=== PATIENT | female | born 1990 | race Caucasian/White ===

== ENCOUNTER 2017-08-19 20:46 | Emergency (ER) | payer OTHER ==
[2017-08-19 21:11] VITALS: BP 116/77
--- NOTE | 2017-08-19 21:23 | EDM.PDOC ---
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 States it kind of feels like labor pains or at least very strong [place] pains. Pains are bad enough that it made her slightly nauseated. She's had no premature labor. She was admitted to the hospital at 35 weeks gestation last time and was felt to be possibly labor and received a shot to stop labor. The baby was born at 37 weeks gestation. She denies any genitourinary tract infections or symptoms of dysuria urgency . No fever or chills. Bowels work twice today and she's not had problems with constipation. Onset: Today Onset Date: 08/19/17 Onset Time: 16:30 Duration: Hour(s): (Seem to start after she was putting away [employer] decorations today.) Location: Reports: Abdomen (history of present illness.) Quality: Reports: Ache, Other (Cramping on intermittent fashions suggestive of) Severity: Moderate (labor pains.) Improves with: Reports: None Worsens with: Reports: None Context: Reports: Other (18 weeks gestation.). Denies: Activity, Exercise, Lifting, Sick Contact, Trauma Associated Symptoms: Denies: Confusion, Chest Pain, Cough, cough w sputum, Diaphoresis, Fever/Chills, Headaches, Loss of Appetite, Malaise, Nausea/Vomiting , Rash, Seizure, Shortness of Breath, Syncope Treatments RELAY MAN: Reports: Other (see below) Other Treatments RELAY MAN: excedrin Abdominal Pain Score (Numeric/FACES): 4 - Related Data Allergies Allergy/AdvReac Type Severity Reaction Status Date / Time No Known Allergies Allergy Verified 08/19/17 21:03 Home Meds: Home Meds Pnv with Ca,No.71/Iron/Fa [ Vitamin Tablet] 1 each PO DAILY 02/24/14 [ History] Cyclobenzaprine [Flexeril] 10 mg PO DAILY PRN 08/19/17 [History] 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 Denies: Fever, Chills, Weight Loss HEENT: Reports: No Symptoms Respiratory: Reports: No Symptoms Cardiovascular: Reports: No Symptoms Endocrine: Reports: No Symptoms GI/Abdominal: Reports: Abdominal Pain (Strong intermittent abdominal cramping pain in the distribution of the uterus. Of note she is 18 weeks gestation. Pain radiates through to her back particularly lower back across the posterior iliac crest.) : Reports: Frequency. Denies: Dysuria, Flank Pain Musculoskeletal: Reports: No Symptoms, Back Pain Skin: Reports: No Symptoms (Starting in the abdomen however.) Neurological: Reports: No Symptoms Psychiatric: Reports: No Symptoms Hematologic/Lymphatic: Reports: No Symptoms Immunologic: Reports: No Symptoms ED EXAM - Physical Exam Exam: See Below Exam Limited By: No Limitations General Appearance: Alert, WD/WN, Anxious Respiratory/Chest: No Respiratory Distress, Lungs Clear, Normal Breath Sounds, No Accessory Muscle Use Cardiovascular: Normal Peripheral Pulses, Regular Rate, Rhythm, No Edema, No Gallop, No Murmur GI/Abdominal Exam: Soft, Non-Tender (Mildly hyperactive bowel sounds.), No Organomegaly, Abnormal Bowel Sounds, Other (Uterus is 18 weeks gestation and nontender.). No: Guarding, Rigid, Rebound, Tender Back Exam: Normal Inspection, Full Range of Motion. No: CVA Tenderness (L), CVA Tenderness (R) Extremities: Normal Inspection, Normal Range of Motion, Non-Tender, No Pedal Edema Neurological: Alert, Oriented, CN II-XII Intact, Normal Cognition, Normal Gait Psychiatric: Normal Affect, Normal Mood Skin Exam: Warm, Dry, Intact, Normal Color, No Rash Course - Vital Signs Last Recorded V/S: Last Vital Signs Temp 37.1 C 08/19/17 21:05 Pulse 88 08/19/17 21:05 Resp 18 08/19/17 21:05 BP 116/77 08/19/17 21:05 Pulse Ox 97 08/19/17 21:05 - Orders/Labs/Meds Labs: Laboratory Tests 08/19/17 Range/Units 21:25 Urine Color Yellow (Yellow) Urine Appearance Clear (Clear) Urine pH 6.5 (5.0-8.0) Ur Specific [place] 1.015 (1.005-1.030) Urine Protein Trace H (Negative) Urine Glucose (UA) Negative (Negative) Urine Ketones Trace H (Negative) Urine Occult Blood Negative (Negative) Urine Nitrite Negative (Negative) Urine Bilirubin Negative (Negative) Urine Urobilinogen 0.2 (0.2-1.0) Ur Leukocyte Esterase Negative (Negative) Urine RBC 0-5 (0-5) /hpf Urine WBC 0-5 (0-5) /hpf Ur Epithelial Cells 0-5 (0-5) /hpf Urine Bacteria Rare (FEW) /hpf Urine Mucus Not seen (FEW) /hpf - Radiology Interpretation Free Text/Narrative:: 26-year-old female who is 5 para 4 presents to the ED with diffuse lower abdominal intermittent cramping pain in the distribution of the uterus suggestive of uterine contractions. States they are quite intense at times in fact it did make her nauseated for a period of time. Started about 1630 hrs. today after she been busy putting away [employer] decorations. She denies any genitourinary symptoms. Toes has urinary frequency due to . Bowels have worked twice today. Emanation reveals no abdomen maladies with uterus just below the umbilicus compatible with an 18 week gestation. It is nontender. Plan urinalysis and I will do a bedside ultrasound. Plan we'll then probably to send her to OB to see if we can identify uterine contractions on a regular basis. - Re-Assessments/Exams Free Text/Narrative Re-Assessment/Exam: 08/19/17 21:57 patient is still experiencing intermittent abdominal cramping pain. Bedside ultrasound reveals an active fetus with good heart tones in the 150s.. Placenta is on the posterior wall of the fundus with no evidence of subchorionic hemorrhage. Cervix appears closed. 08/19/17 22:15 urinalysis came back completely normal. I contacted Dr. Garcia her FACTORY ASSEMBLER and he is special education tutor tonight. He will phone the plunkett. The plan will be to place her on topical assist monitor for about a half hour to see if she is actually thuy. She will be essentially discharged from the ED. Departure - Departure Time of Disposition: 22:17 Disposition: Home, Self-Care 01 Condition: Fair Clinical Impression: Abdominal pain affecting , Uterine contractions during - Discharge Information Referrals: Rancho Garcia MD [Primary Care Provider] - Forms: ED Department Discharge Additional Instructions: Evaluation the emergency room tonight in regards to 18 week gestation with development of diffuse lower abdominal cramping pain that radiates through to her lower back and comes and goes characteristic of cramping. This strongly suggests you drink contractions. Ultrasound reveals a normal matias fetus with good heart tones in the 150s. There is no evidence of any subchorionic hemorrhage area placentas on the posterior wall of the uterus where it is usually located . Urinalysis done in the ED is negative. Spoke with Dr. Garcia her FACTORY ASSEMBLER and we both agree that you should go to the OB unit for another half an hour for monitoring purposes. The monitor will Whether or not there is significant uterine contractions versus strong [place] Rodriguez although it's very early in of her [place] contractions.
== END 2017-08-19 22:35 | disposition home or self-care (01) ==
LOC: JD.ED 20:46
DX: O60.02 Preterm labor without delivery, second trimester (principal); Z3A.18 18 weeks gestation of pregnancy; Z79.899 Other long term (current) drug therapy; O26.891 Other specified pregnancy related conditions, first trimester; N94.89 Other specified conditions associated with female genital organs and menstrual cycle
CPT/HCPCS: 81001; 99285; J7120; 99284; A9270-GY

== ENCOUNTER 2018-01-06 14:13 | Inpatient (IN) | payer OTHER ==
[2018-01-06] MEDS ORDERED: Nalbuphine 20 MG/ML 1 ML Syringe IVPUSH PRN (15:52)
[2018-01-06] MEDS ORDERED: Lidocaine 1% 50 ML MDV INJECT ONE (15:52)
[2018-01-06] MEDS ORDERED: Sodium Chloride 0.9% 10 ML Syringe FLUSH PRN (15:52)
[2018-01-06] MEDS ORDERED: Oxytocin/Lactated Ringers 10 UNIT/1,000 ML BAG IV SCH (16:00)
--- NOTE | 2018-01-06 16:18 | PCM.LDHP ---
L&D History of Present Illness - General Date of Service: 01/06/18 Admit Problem/Dx: Patient Status Order with Admit Dx/Problem 01/06/18 15:52 Patient Status [ADT] Routine Admission Diagnosis/Problem Admission Diagnosis/Problem complications 01/06/18 16:01 38-1/7 week intrauterine , pruritus of , elevated liver function studies, cannot rule out intrahepatic cholestasis of Source of Information: Patient History Limitations: Reports: No Limitations - History of Present Illness Introduction:: Guadalupe is a 27-year-old 5 para 2113 white female was admitted for a medical induction of labor for symptoms of pruritis in and elevated liver function studies. KATHLEEN 01/19/2018 [address] her at 38-1/7 weeks gestational age. Due date is determined by certain last menstrual period of 04/14/2017 onset, ordered by ultrasound 3 on 06/28/2017 05/27/2017 end 08/16/2017. Patient reports severe itching with acute onset approximately 2 days ago. She was seen in clinic yesterday at which time a CBC, CMP and bile acids were performed. Urinalysis was also found to be negative with the exception of some blood. Bile acid assays are pending at this time. Her AST was elevated to 38. On repeat on increased to 42. Her itching worsened today to the point where she is not able to sleep last night and she is concerned about her baby's well-being. Biophysical profile this a.m. was 8/8. 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 KATHLEEN 01/19/2018. LMP 04/14/2017 times approximate 5 days. Past pregnancies: 1. 2009spontaneous at 6 weeks 2. [birth year] 2010 [facility] 40 weeks-5 [facility]. [facility] born 02/25/2015 at 39 weeks gestational age4 [address] [facility] [facility] [place] [facility]. Male born 03[birth year]17/2017 at 37-2/7 weeks gestational age12 hours of labor6 lbs. 7 oz.NSVDbaby spent 10 [place] in the [place]. Child's name is Sanjeev Henson Patient had a relatively normal course until 2 days ago. Her E PDS score 09/02/2017 was 3/30. Group B strep screen is negative. Patient has a history of depression with previous . She had a normal one- hour glucose tolerance test patient declined genetic evaluation. She plans to breast-feed. course: Patient was initially seen for her care on 06/28/2017 at 10-5/7 weeks gestational age. She seen on a regular basis throughout the . She gained weight of approximately 12 pounds from 152-164 pounds. Her vital signs stable throughout the course. Fundal height growth has been appropriate. Cervix on last evaluation in clinic was 3 cm, 80% effaced, -3 station, mid position, very soft. T dap was given on 12/09/2017. laboratory testing shows blood to be B+. Antibody screen is negative. First hemoglobin is 13.0 g/dL. Platelets were 369,000. She is rubella immune. RPR is nonreactive. Urine culture was negative. Hepatitis B surface antigen and HIV assays were negative. GC and Chlamydia were both negative. Second trimester labs showed a 1 hour glucose tolerance test result of 100. Her hemoglobin is 12.2 g/dL. Platelets are 261,000. Group B strep screen was negative. Labor count on 01/05/2018 was 259,000. Allergies: None. Medications: 1. Hydroxyzine 25 mg oral tablet 3-4 times a day for itching 2. Acetaminophen [place] codeine No. 3 6[address]91 oral tablets when necessary for pain 3. Pro-air HFR 108 g/per action inhalation aerosol solution1-2 puffs every 4- 6 hours when necessary as directed 4. Detailed totalacetaminophencaffeine capsules when necessary for headache 5. As a [id number] mg daily 6. vitamins daily. Past medical history: 1. Vaginal delivery 4 2. Miscarriage 3 asthma 4. Seasonal allergies 5. depression after second was on Wellbutrin Past surgical history: 1. Oral surgery in 2007 and 2009 Family history: Mother and father are alive and well. One brother and one sister alive and well. Maternal grandmother alive and well. Maternal grandfather secondary to heart disease. Paternal grandfather mother alive and well. Paternal grandfather secondary to old age. No clotting , bleeding, anesthesia and round is noted in the family. A daughter had a history of elevated platelets but this has now resolved. No -related problems noted in the family. Patient has one sister with uterine fibroids. Social history: Patient is , is Natividad. They live in [place], [place]. 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 She is a high school graduate. She denies any significant most alcohol, drugs or tobacco. Review of systems: Severe, intolerable itching evolving her entire body including the palms of her hands and soles of her feet. Baby is active. No contractions noted. Skin: Itching as above. Denies any rash. HEENT: Itching Cardiovascular: No chest pain or exercise intolerance Respiratory: No shortness of breath or infectious symptoms Breasts: Changes associated , patient plans to breast-feed GI: Negative : Baby is active. Height increased secondary to Musculoskeletal: Negative Neurological: Pruritus but otherwise negative. Physical exam: In general patient is well-developed, well-nourished, miserable female who is having significant periodic symptomatology. Blood pressure on 01/05/2018 124/68. Weight was 164 pounds. heart rate was 154. Pregravid weight was 152. Height is 5 feet 3. Body mass index is 28.7. Skin is warm and dry without any apparent lesions. Specifically negative for rashes, hives or other cutaneous eruptions. HEENT, neck and back within normal limits Lungs are clear with good breath sounds in all lung coto. Cardiovascular exam shows regular rate and rhythm without murmurs. Breasts exam deferred having been done at first visit sounds normal. The most protuberant lenses fundal height of 40.5 cm. Cervix is as described above. It is 3 cm, 80% effaced, very soft, -3 station, mid position. Baby is in a vertex presentation. Extremities and neurological exam other than itching and normal limits. 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 Comprehensive metabolic profile has returned showing mildly decreased albumin and the uterine but with mildly elevated AST of 38. Repeat CMP on 01/06/2018 showed slight increase in AST to 42. Urinalysis is unremarkable with the exception of some blood which was felt to be due to her cervical exam. Problem List Initiated/Reviewed/Updated: Yes Orders Last 24hrs: Active Orders 24 hr Category Date Time Status Patient Status [ADT] Routine ADT 01/06/18 15:52 Ordered Activity as Tolerated [RC] PFP Care 01/06/18 15:52 Ordered Communication Order [RC] ASDIRECTED Care 01/06/18 15:52 Ordered Heart Tones [RC] ASDIRECTED Care 01/06/18 15:54 Ordered Notify Provider [RC] PFP Care 01/06/18 15:52 Ordered Notify Provider [RC] PRN Care 01/06/18 15:52 Ordered Peripheral IV Care [RC] . DIRECTED Care 01/06/18 15:54 Ordered Pump Management, Intrathecal [RC] ASDIRECTED Care 01/06/18 15:55 Ordered Vital Signs [RC] PER UNIT ROUTINE Care 01/06/18 15:52 Ordered Regular Diet [DIET] Diet 01/06/18 Lunch Ordered Lactated Ringers [Ringers, Lactated] 1,000 ml Med 01/06/18 16:00 Ordered IV ASDIRECTED Lidocaine 1% [Xylocaine 1%] Med 01/06/18 15:52 Once 10 ml INJECT ONETIME ONE Nalbuphine [Nubain] Med 01/06/18 15:52 Ordered 10 mg IVPUSH Q2H PRN Oxytocin/Lactated Ringers [Pitocin in LR 10 Units/1,000 Med 01/06/18 16:00 Ordered ML] 10 unit in 1,000 ml IV TITRATE Sodium Chloride 0.9% [Saline Flush] Med 01/06/18 15:52 Ordered 10 ml FLUSH ASDIRECTED PRN Electronic Heart Tones Ext w TOCO [WOMSER] Ot 01/06/18 15:52 Ordered Routine Electronic Heart Tones Internal [WOMSER] Per Unit Ot 01/06/18 15:52 Ordered Routine Peripheral IV Insertion Adult [OM.PC] Routine [facility] 01/06/18 15:52 Ordered Resuscitation Status Routine Resus Stat 01/06/18 15:52 Ordered Assessment/Plan Comment:: 1. 38-1/7 week intrauterine with pruritus of , elevated liver function studies. Cannot rule out intra-hepatic cholestasis of . Potential risks of intra-hepatic cholestasis of , benefits of induction of labor and risks of induction of labor or all discussed in detail patient. She wishes to proceed. 2. Multiparous status with advanced cervical dilation 3.Group B strep negative 4. Rubella immune 5. Patient plans to breast-feed 6. Patient okay with epidural in labor and delivery 7. History of depression on meds after second Plan: 1. Pitocin/artificial rupture membranes induction of labor. Procedure, risks, benefits, alternatives of care discussed with patient. She appears to understand and wishes to proceed 2. Near continuous electronic monitoring 3. Support breast-feeding decision 4. Epidural when necessary per patient desire 5. Repeat liver function studies with CMP on day following delivery. 6. Platelet count on 01/05/2018 was 259,000, hemoglobin is 12.4 g/dL.
[2018-01-06] MEDS ORDERED: Bupivacaine 0.25% 10 ML SDV ONE (17:00)
[2018-01-06] MEDS: Lactated Ringers 1,000 ML IV SCH ×4 (18:47→20:50)
[2018-01-06] MEDS ORDERED: diphenhydrAMINE 50 MG/ML SDV IVPUSH PRN (19:02)
[2018-01-06] MEDS ORDERED: ePHEDrine 50 MG/ML SDV IVPUSH PRN (19:02)
[2018-01-06] MEDS ORDERED: fentaNYL 100 MCG/2 ML SDV EPIDUR PRN (19:02)
[2018-01-06] MEDS ORDERED: Bupivacaine/fentaNYL/NS 100 ML Bag EPIDUR SCH (19:15)
--- NOTE | 2018-01-06 19:41 | PCM.PREANE ---
Preanesthetic Assessment - Anesthesia/Transfusion/Family Hx Anesthesia History: Prior Anesthesia Without Reaction Family History of Anesthesia Reaction: No Transfusion History: No Prior Transfusion(s) - Review of Systems General: No Symptoms Pulmonary: No Symptoms Cardiovascular: No Symptoms Gastrointestinal: No Symptoms Neurological: No Symptoms Other: Reports: None - Physical Assessment Pulse: 83 O2 Sat by Pulse Oximetry: 97 Respiratory Rate: 14 Blood Pressure: 126/86 Temperature: 36.3 C Vital Signs: Last Vital Signs Temp 36.6 C 01/06/18 15:55 Pulse 83 01/06/18 18:02 Resp 14 01/06/18 15:55 BP 126/86 01/06/18 16:45 Pulse Ox 97 01/06/18 15:55 Height: 1.6 m Weight: 73.936 kg ASA Class: 2 Mental Status: Alert & Oriented x3 Airway Class: Mallampati = 1 Dentition: Reports: Normal Dentition Thyro-Mental Finger Breadths: 3 Mouth Opening Finger Breadths: 3 ROM/Head Extension: Full Lungs: Clear to Auscultation, Normal Respiratory Effort Cardiovascular: Regular Rate, Regular Rhythm - Allergies Allergies/Adverse Reactions: Allergies Allergy/AdvReac Type Severity Reaction Status Date / Time No Known Allergies Allergy Verified 12/30/17 09:36 - Anesthesia Plan Pre-Op Medication Ordered: None - Acknowledgements Anesthesia Type Planned: Epidural Pt an Appropriate Candidate for the Planned Anesthesia: Yes Alternatives and Risks of Anesthesia Discussed w Pt/Guardian: Yes Pt/Guardian Understands and Agrees with Anesthesia Plan: Yes PreAnesthesia Questionnaire Gastrointestinal History: Reports: GERD 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: Psychiatric History: Reports: Other (See Below) Other Psychiatric History: 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 child Dermatologic History: Reports: Urticaria Other Dermatologic History: with this starting yesterday - Past Surgical History HEENT Surgical History: Reports: Other (See Below) Dermatological Surgical History: Reports: None - SUBSTANCE USE Smoking Status *Q: Never Smoker Second Hand Smoke Exposure: No Recreational Drug Use History: No - HOME MEDS Home Medications: Home Meds Pnv with Ca,No.71/Iron/Fa [ Vitamin Tablet] 1 each PO DAILY 02/24/14 [ History] Cyclobenzaprine [Flexeril] 10 mg PO DAILY PRN 08/19/17 [History] - CURRENT (IN HOUSE) MEDS Current Meds: Current Medications Diphenhydramine HCl (Benadryl) 25 mg IVPUSH Q6H PRN PRN Reason: Itching Ephedrine Sulfate (Ephedrine Sulfate) 5 mg IVPUSH ASDIRECTED PRN PRN Reason: HYPOTENTSION Fentanyl (Sublimaze) 100 mcg EPIDUR Q3H PRN PRN Reason: PAIN Last Admin: 01/06/18 19:31 Dose: 100 mcg Fentanyl/Bupivacaine HCl (Fentanyl/Bupivacaine/Ns 2 Mcg-0.125% 100 Ml) 100 ml EPIDUR ASDIRECTED CELESTINE Last Admin: 01/06/18 19:31 Dose: 100 ml Lactated Ringer's (Ringers, Lactated) 1,000 mls @ 100 mls/hr IV ASDIRECTED CELESTINE Last Admin: 01/06/18 18:48 Dose: 900 mls/hr Oxytocin/Lactated Ringer's (Pitocin In Lr 10 Units/1,000 Ml) 10 unit in 1,000 mls @ 12 mls/hr IV TITRATE CELESTINE; Protocol Nalbuphine HCl (Nubain) 10 mg IVPUSH Q2H PRN PRN Reason: Pain (moderate 4-6) Sodium Chloride (Saline Flush) 10 ml FLUSH ASDIRECTED PRN PRN Reason: Keep Vein Open Discontinued Medications Lidocaine HCl (Xylocaine 1%) 10 ml INJECT ONETIME ONE Stop: 01/06/18 15:53
--- NOTE | 2018-01-06 22:57 | PCM.SN ---
- Free Text/Narrative Note: Delivery note:Guadalupe is a 5 now para 3114 white female who was admitted on the afternoon of 01/06/2018 for an intrauterine at 38-1/7 weeks with an KATHLEEN of 01/19/2018, severe. I this of , elevated AST. Initial diagnostic evaluation cannot entirely rule out intrahepatic cholestasis of . Bile salt assays are pending. Patient was started on IV Pitocin and had artificial rupture membranes. She started 3 cm and with Pitocin augmentation and progressed relatively low rapidly to complete cervical dilation by approximately 2215 hrs. She pushed 3 contractions and delivered a viable, matias, 7 pound 9.7 ounce (3450 gram) 19.5 inch long male infant with Apgars of 9 and 9 in a left occiput anterior position over an intact perineum. Very superficial, left anterior labia minora abrasion noted. No bleeding or architectural distortion seen and therefore no need for sutures. The nose and mouth bulb suctioned. The cord was allowed to pulsate and baby was placed on mom's abdomen. Baby was dried. After cord quit pulsating it was clamped 2 and cut by the baby's father. Cord blood was obtained.
[2018-01-07] MEDS ORDERED: Lanolin 100% Cream 7 GM Tube TOP PRN (00:20)
[2018-01-07] MEDS ORDERED: Acetaminophen 325 MG Tab PO PRN (00:20)
[2018-01-07] MEDS ORDERED: Witch Hazel Medicated Pads 100/Jar TOP PRN (00:20)
[2018-01-07] MEDS ORDERED: Docusate Sodium 100 MG Cap PO PRN (00:20)
[2018-01-07] MEDS ORDERED: Benzocaine/Menthol 20%-0.5% Spray 56 GM Canister TOP PRN (00:20)
[2018-01-07] MEDS: Ibuprofen 600 MG Tab PO PRN ×4 (03:21→17:38)
[2018-01-07] MEDS: Prenatal Multivitamin with Calcium/Folic Acid/Iron Tab PO SCH (08:13)
--- NOTE | 2018-01-07 09:19 | PCM.SN ---
- Free Text/Narrative Note: note: Patient is doing well in the period. Minimal lochia, voiding well, ambulated without problems. Nursing without concerns. Baby is doing fine. Patient is afebrile, vital signs are stable Abdomen is flat, soft, uterus is below the umbilicus and is firm and nontender. Legs are nontender. Assessment: 1. recovery going well. 2. Elevated liver function studies, pruritus which is now improved but findings most probably consistent with pruritus of -cannot entirely rule out intrahepatic cholestasis of . Plan: 1. Routine care. 2. Repeat CMP in a.m. 3. Patient be discharged home within the next 24-48 hours.
[2018-01-07] MEDS: Acetaminophen/oxyCODONE 325-5 MG Tab PO PRN ×3 (10:05→20:18)
--- NOTE | 2018-01-07 13:05 | PCM48HPAN ---
Post Anesthesia Note - EVALUATION WITHIN 48HRS OF ANESTHETIC Vital Signs in Normal Range: Yes Patient Participated in Evaluation: Yes Respiratory Function Stable: Yes Airway Patent: Yes Cardiovascular Function Stable: Yes Hydration Status Stable: Yes Pain Control Satisfactory: Yes Nausea and Vomiting Control Satisfactory: Yes Mental Status Recovered: Yes
[2018-01-08] MEDS: Ibuprofen 600 MG Tab PO PRN ×2 (00:21→11:49)
[2018-01-08] MEDS: Acetaminophen/oxyCODONE 325-5 MG Tab PO PRN (05:59)
[2018-01-08 08:28] VITALS: BP 119/61
[2018-01-08] MEDS: Prenatal Multivitamin with Calcium/Folic Acid/Iron Tab PO SCH (09:17)
--- NOTE | 2018-01-08 10:35 | PCM.DCSUM1 ---
Discharge Summary - Hospital Course Free Text/Narrative:: [facility] Provider Simple Note Patient Name: GUADALUPE OCHOA Date of : 88 Patient Status: Inpatient Attending Provider: Rancho Garcia Date: 01/06/18 22:51 Initialization Date: 01/06/18 22:51 - Free Text/Narrative Note: Delivery note:Guadalupe is a 5 now para 3114 white female who was admitted on the afternoon of 01/06/2018 for an intrauterine at 38-1/7 weeks with an KATHLEEN of 01/19/2018, severe. I this of , elevated AST. Initial diagnostic evaluation cannot entirely rule out intrahepatic cholestasis of . Bile salt assays are pending. Patient was started on IV Pitocin and had artificial rupture membranes. She started 3 cm and with Pitocin augmentation and progressed relatively low rapidly to complete cervical dilation by approximately 2215 hrs. She pushed 3 contractions and delivered a viable, matias, 7 pound 9.7 ounce (3450 gram) 19.5 inch long male infant with Apgars of 9 and 9 in a left occiput anterior position over an intact perineum. Very superficial, left anterior labia minora abrasion noted. No bleeding or architectural distortion seen and therefore no need for sutures. The nose and mouth bulb suctioned. The cord was allowed to pulsate and baby was placed on mom's abdomen. Baby was dried. After cord quit pulsating it was clamped 2 and cut by the baby's father. Cord blood was obtained. CMP values have improved today from yesterday and patient's itching is less today as well. HPI Initial Comments: [facility] Provider Simple Note Patient Name: GUADALUPE OCHOA Date of : 88 Patient Status: Inpatient Attending Provider: Rancho Garcia Date: 01/06/18 22:51 Initialization Date: 01/06/18 22:51 - Free Text/Narrative Note: Delivery note:Guadalupe is a 5 now para 3114 white female who was admitted on the afternoon of 01/06/2018 for an intrauterine at 38-1/7 weeks with an KATHLEEN of 01/19/2018, severe. I this of , elevated AST. Initial diagnostic evaluation cannot entirely rule out intrahepatic cholestasis of . Bile salt assays are pending. Patient was started on IV Pitocin and had artificial rupture membranes. She started 3 cm and with Pitocin augmentation and progressed relatively low rapidly to complete cervical dilation by approximately 2215 hrs. She pushed 3 contractions and delivered a viable, matias, 7 pound 9.7 ounce (3450 gram) 19.5 inch long male with Apgars of 9 and 9 in a left occiput anterior position over an intact perineum. Very superficial, left anterior labia minora abrasion noted. No bleeding or architectural distortion seen and therefore no need for sutures. The nose and mouth bulb suctioned. The cord was allowed to pulsate and baby was placed on mom's abdomen. Baby was dried. After cord quit pulsating it was clamped 2 and cut by the baby's father. Cord blood was obtained. CMP values have improved today from yesterday and patient's itching is less today as well. Brief History: [facility] . Provider Simple Note. Patient Name : GUADALUPE OCHOA JOedical Record Number: [id number]. Date of : Patient Status: Inpatient. Attending Provider: Rancho Garcia FAccount Number : [id number]. Date: 01/06/18 22:51Initialization Date: 01/06/18 22:51. - Free Text/Narrative. Note: Delivery note:Guadalupe is a 5 now para 3114 white female who was admitted on the afternoon of 01/06/2018 for an intrauterine at 38-1/7 weeks with an KATHLEEN of 01/19/2018, severe. I this of , elevated AST. Initial diagnostic evaluation cannot entirely rule out intrahepatic cholestasis of . Bile salt assays are pending. Patient was started on IV Pitocin and had artificial rupture membranes. She started 3 cm and with Pitocin augmentation and progressed relatively low rapidly to complete cervical dilation by approximately 2215 hrs. She pushed 3 contractions and delivered a viable, matias, 7 pound 9.7 ounce (3450 gram) 19.5 inch long male with Apgars of 9 and 9 in a left occiput anterior position over an intact perineum. Very superficial, left anterior labia minora abrasion noted. No bleeding or architectural distortion seen and therefore no need for sutures. The nose and mouth bulb suctioned. The cord was allowed to pulsate and baby was placed on mom's abdomen. Baby was dried. After cord quit pulsating it was clamped 2 and cut by the baby's father. Cord blood was obtained. CMP values have improved today from yesterday and patient's itching is less today as well. - Discharge Data Discharge Date: 01/08/18 Discharge Disposition: Home, Self-Care 01 Condition: Good - Discharge Diagnosis/Problem(s) (1) 38 weeks gestation of SNOMED Code(s): 95785301 ICD Code: Z3A.38 - 38 WEEKS GESTATION OF Status: Acute Current Visit: Yes (2) Delivery normal SNOMED Code(s): 19737828, 333504120 ICD Code: O80 - ENCOUNTER FOR FULL-TERM UNCOMPLICATED DELIVERY Status: Acute Current Visit: Yes (3) Generalized pruritus SNOMED Code(s): 857864373 ICD Code: L29.9 - PRURITUS, UNSPECIFIED Status: Acute Current Visit: Yes - Patient Summary/Data Complications: None Consults: None Hospital Course: Uneventful CMP improving daily. - Patient Instructions Diet: Regular Diet as Tolerated Driving: Do Not Drive (48 hours) Showering/Bathing: May Shower Notify Provider of: Fever, Increased Pain, Swelling and Redness, Drainage, Nausea and/or Vomiting - Discharge Plan Prescriptions/Med Rec: Acetaminophen/oxyCODONE [Percocet 325-5 MG] 1 tab PO Q6HR PRN #15 tablet PRN Reason: Pain Ibuprofen [Advil Liqui-Gels] 200 mg PO Q6H #50 capsule Home Medications: Home Meds Pnv with Ca,No.71/Iron/Fa [ Vitamin Tablet] 1 each PO DAILY 02/24/14 [ History] Cyclobenzaprine [Flexeril] 10 mg PO DAILY PRN 08/19/17 [History] Acetaminophen [Tylenol] 650 mg PO Q4H PRN tablet 01/08/18 [Rx] Acetaminophen/oxyCODONE [Percocet 325-5 MG] 1 tab PO Q6HR PRN #15 tablet [Rx] Ibuprofen [Advil Liqui-Gels] 200 mg PO Q6H #50 capsule 01/08/18 [Rx] Lisa Malone [Tucks] 1 pad TOP ASDIRECTED PRN pad 01/08/18 [Rx] Referrals: Rancho Garcia MD [Primary Care Provider] - (Called next Wednesday to make appointment to see Dr. Garcia in 2 weeks) - Discharge Summary/Plan Comment DC Time >30 min.: No - Patient Data Vitals - Most Recent: Last Vital Signs Temp 97.5 F 01/08/18 07:57 Pulse 57 L 01/08/18 07:57 Resp 20 01/08/18 07:57 BP 119/61 01/08/18 07:57 Pulse Ox 99 01/08/18 07:57 Weight - Most Recent: 163 lb Lab Results - Last 24 hrs: Laboratory Results - last 24 hr 01/08/18 Range/Units 06:18 Sodium 137 (136-145) mEq/L Potassium 4.0 (3.5-5.1) mEq/L Chloride 104 (98-107) mEq/L Carbon Dioxide 24 (21-32) mEq/L Anion Gap 13.0 (5-15) BUN 7 (7-18) mg/dL Creatinine 0.8 (0.55-1.02) mg/dL Est Cr Clr Drug Dosing 86.60 mL/min Estimated GFR (MDRD) > 60 (>60) mL/min BUN/Creatinine Ratio 8.8 L (14-18) Glucose 83 (74-106) mg/dL Calcium 8.7 (8.5-10.1) mg/dL Total Bilirubin 0.4 (0.2-1.0) mg/dL AST 44 H (15-37) U/L ALT 59 (14-59) U/L Alkaline Phosphatase 111 (46-116) U/L Total Protein 5.6 L (6.4-8.2) g/dl Albumin 2.2 L (3.4-5.0) g/dl Globulin 3.4 gm/dL Albumin/Globulin Ratio 0.7 L (1-2) Med Orders - Current: Current Medications Acetaminophen (Tylenol) 650 mg PO Q4H PRN PRN Reason: mild pain or fever Benzocaine/Menthol (Dermoplast Pain Relief [place]) 0 gm TOP ASDIRECTED PRN PRN Reason: Perineal Comfort Measure Last Admin: 01/07/18 00:27 Dose: 1 can Docusate Sodium (Colace) 100 mg PO BID PRN PRN Reason: Constipation Emollient Ointment (Lansinoh Hpa) 0 gm TOP ASDIRECTED PRN PRN Reason: Sore Nipples Ibuprofen (Motrin) 600 mg PO Q4H PRN PRN Reason: Mild pain or fever Last Admin: 01/08/18 00:21 Dose: 600 mg Oxycodone/Acetaminophen (Percocet 325-5 Mg) 2 tab PO Q4H PRN PRN Reason: Pain Last Admin: 01/08/18 05:59 Dose: 2 tab Prenat Multivit/Foreign Languages Department Chair/Iron/Folic Ac ( Plus Iron) 1 each PO DAILY CELESTINE Last Admin: 01/08/18 09:17 Dose: Not Given Lisa Malone (Tucks) 1 pad TOP ASDIRECTED PRN PRN Reason: Hemorrhoid pain Last Admin: 01/07/18 00:27 Dose: 1 can Discontinued Medications Bupivacaine HCl (Sensorcaine-Mpf 0.25%) 10 ml .ROUTE .STK-MED ONE Stop: 01/06/18 17:01 Diphenhydramine HCl (Benadryl) 25 mg IVPUSH Q6H PRN PRN Reason: Itching Ephedrine Sulfate (Ephedrine Sulfate) 5 mg IVPUSH ASDIRECTED PRN PRN Reason: HYPOTENTSION Fentanyl (Sublimaze) 100 mcg EPIDUR Q3H PRN PRN Reason: PAIN Last Admin: 01/06/18 19:31 Dose: 100 mcg Fentanyl/Bupivacaine HCl (Fentanyl/Bupivacaine/Ns 2 Mcg-0.125% 100 Ml) 100 ml EPIDUR ASDIRECTED [facility] Last Admin: 01/06/18 19:31 Dose: 100 ml Lactated Ringer's (Ringers, Lactated) 1,000 mls @ 100 mls/hr IV ASDIRECTED [facility] Last Admin: 01/06/18 20:50 Dose: 250 mls/hr Oxytocin/Lactated Ringer's (Pitocin In Lr 10 Units/1,000 Ml) 10 unit in 1,000 mls @ 12 mls/hr IV TITRATE CELESTINE; Protocol Last Titration: 01/06/18 22:35 Dose: 500 mls/hr Lidocaine HCl (Xylocaine 1%) 10 ml INJECT ONETIME ONE Stop: 01/06/18 15:53 Last Admin: 01/07/18 03:13 Dose: Not Given Nalbuphine HCl (Nubain) 10 mg IVPUSH Q2H PRN PRN Reason: Pain (moderate 4-6) Sodium Chloride (Saline Flush) 10 ml FLUSH ASDIRECTED PRN PRN Reason: Keep Vein Open
== END 2018-01-08 12:30 | disposition home or self-care (01) | DRG 775 ==
LOC: JD.OB 16:21 → OBSVTOIN 22:29 → JD.OB 22:30 → JD.MS 01-08 15:16
PROVIDERS: ADMIT Obstetrics & Gynecology; ATTEND Obstetrics & Gynecology
PROC: 10E0XZZ Delivery of Products of Conception, External Approach (ICD-10-PCS; principal; 2018-01-06)
PROC: 10907ZC Drainage of Amniotic Fluid, Therapeutic from Products of Conception, Via Natural or Artificial Opening (ICD-10-PCS; 2018-01-06)
PROC: 3E033VJ Introduction of Other Hormone into Peripheral Vein, Percutaneous Approach (ICD-10-PCS; 2018-01-06)
PROC: 6A550ZT Pheresis of Cord Blood Stem Cells, Single (ICD-10-PCS; 2018-01-06)
PROC: 00HU33Z Insertion of Infusion Device into Spinal Canal, Percutaneous Approach (ICD-10-PCS; 2018-01-06)
PROC: 3E0R3BZ Introduction of Anesthetic Agent into Spinal Canal, Percutaneous Approach (ICD-10-PCS; 2018-01-06)
DX: O26.62 Liver and biliary tract disorders in childbirth (principal); K83.1 Obstruction of bile duct; O99.72 Diseases of the skin and subcutaneous tissue complicating childbirth; O99.52 Diseases of the respiratory system complicating childbirth; O70.0 First degree perineal laceration during delivery; Z3A.38 38 weeks gestation of pregnancy; Z37.0 Single live birth; J45.909 Unspecified asthma, uncomplicated; L29.9 Pruritus, unspecified
CPT/HCPCS: 36415; 51702; 59025; 59409; 80053; 85027; A9270-GY; J2590; J3010; J7120

== ENCOUNTER 2018-01-24 23:23 | Emergency (ER) | payer OTHER ==
[2018-01-24 23:33] VITALS: BP 138/83
[2018-01-24] MEDS ORDERED: Ondansetron 4 MG/2 ML SDV IVPUSH ONE (23:42)
[2018-01-24] MEDS ORDERED: Sodium Chloride 0.9% 10 ML Syringe FLUSH PRN (23:42)
[2018-01-24] MEDS ORDERED: Sodium Chloride 0.9% 1,000 ML IV STA (23:42)
[2018-01-24] MEDS ORDERED: HYDROmorphone 0.5 MG/0.5 ML SYRINGE IVPUSH ONE (23:43)
--- NOTE | 2018-01-24 23:49 | EDM.PDOC ---
ED HPI GENERAL MEDICAL PROBLEM - General Chief Complaint: Abdominal Pain Stated Complaint: ABDOMINAL PAIN Time Seen by Provider: 01/24/18 23:35 Source of Information: Reports: Patient History Limitations: Reports: No Limitations - History of Present Illness INITIAL COMMENTS - FREE TEXT/NARRATIVE: The patient presents with upper abdominal pain. This has been going on for 2 days. She is 2 weeks post with no complications. She has not been having a bowel movement. She took a stool softner and tried to go tonight. She did have a BM but that made the pain worse. She has nausea and vomiting. She has no fever, chills, chest pain or shortness of breath. The pain does radiate to her back. She has her gallbladder. She had cholestasis of . She last ate at 6pm tonight. Onset: Gradual Duration: Day(s): (2) Location: Reports: Abdomen Quality: Reports: Sharp Severity: Severe Improves with: Reports: None Worsens with: Reports: None Associated Symptoms: Reports: Nausea/Vomiting. Denies: Chest Pain, Cough, Fever /Chills, Headaches, Shortness of Breath Upper Abdomen Pain Score (Numeric/FACES): 8 - Related Data Allergies Allergy/AdvReac Type Severity Reaction Status Date / Time No Known Allergies Allergy Verified 01/24/18 23:33 Home Meds: Home Meds Hydrocodone/Acetaminophen [Hydrocodon-Acetaminophen 5-325] 1 - 2 each PO Q6HR PRN #15 tablet 01/25/18 [Rx] Nitrofurantoin Monohyd/M-Cryst [Macrobid 100 mg Capsule] 100 mg PO BID #10 capsule 01/25/18 [Rx] Omeprazole Magnesium [Prilosec Otc] 20 mg PO DAILY #7 tablet. 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 Dermatologic History: Reports: Urticaria Other Dermatologic History: with this starting yesterday - Past Surgical History HEENT Surgical History: Reports: Other (See Below) Other HEENT Surgeries/Procedures: wisdom teeth removal Dermatological Surgical History: Reports: None Social & Family History - Family History Family Medical History: Unobtainable - Tobacco Use Smoking Status *Q: Never Smoker - Caffeine Use Caffeine Use: Reports: None - Recreational Drug Use Recreational Drug Use: No - Living Situation & Occupation Living situation: Reports: Occupation: Unemployed ED ROS GENERAL - Review of Systems Review Of Systems: See Below Constitutional: Reports: No Symptoms HEENT: Reports: No Symptoms Respiratory: Reports: No Symptoms Cardiovascular: Reports: No Symptoms Endocrine: Reports: No Symptoms GI/Abdominal: Reports: Abdominal Pain, Nausea, Vomiting. Denies: Diarrhea : Reports: No Symptoms Musculoskeletal: Reports: No Symptoms ED EXAM, GI/ABD - Physical Exam Exam: See Below Exam Limited By: No Limitations General Appearance: Alert, No Apparent Distress Ears: Normal External Exam Nose: Normal Inspection Head: Atraumatic, Normocephalic Neck: Normal Inspection Respiratory/Chest: No Respiratory Distress, Lungs Clear, Normal Breath Sounds Cardiovascular: Regular Rate, Rhythm, No Edema, No Murmur GI/Abdominal Exam: Soft, No Organomegaly, No Mass, Tender (Moderate pain upon palpation to the epigastric and RUQ region.) Back Exam: Normal Inspection Extremities: Normal Inspection Neurological: Alert, Oriented, No Motor/Sensory Deficits Course - Vital Signs Last Recorded V/S: Last Vital Signs Temp 98.2 F 01/24/18 23:30 Pulse 80 01/24/18 23:30 Resp 20 01/24/18 23:30 BP 138/83 01/24/18 23:30 Pulse Ox 97 01/24/18 23:30 - Orders/Labs/Meds Orders: Active Orders 24 hr Category Date Time Status Peripheral IV Care [RC] . DIRECTED Care 01/24/18 23:42 Active Abdomen Ltd [US] Stat Exams 01/25/18 00:15 Taken UA W/MICROSCOPIC [URIN] Stat Lab 01/25/18 01:15 Ordered Sodium Chloride 0.9% [Saline Flush] Med 01/24/18 23:42 Active 10 ml FLUSH ASDIRECTED PRN ED Antiemetic Medication Reflex [OM.PC] Stat Oth 01/24/18 23:42 Ordered Peripheral IV Insertion Adult [OM.PC] Stat Oth 01/24/18 23:42 Ordered Medication Orders Sodium Chloride (Saline Flush) 10 ml FLUSH ASDIRECTED PRN PRN Reason: Keep Vein Open Last Admin: 01/24/18 23:57 Dose: 10 ml Labs: Laboratory Tests 01/24/18 01/24/18 01/25/18 Range/Units 23:35 23:55 01:15 WBC 8.45 (3.98-10.04) K/mm3 RBC 4.72 (3.98-5.22) M/mm3 Hgb 13.2 (11.2-15.7) gm/L Hct 40.3 (34.1-44.9) % MCV 85.4 (79.4-94.8) fl MCH 28.0 (25.6-32.2) pg MCHC 32.8 (32.2-35.5) g/dl RDW Std Deviation 41.3 (36.4-46.3) fL Plt Count 344 (182-369) K/mm3 MPV 9.0 L (9.4-12.3) fl Neut % (Auto) 59.3 (34.0-71.1) % Lymph % (Auto) 28.8 (19.3-51.7) % Tillman % (Auto) 5.7 (4.7-12.5) % Eos % (Auto) 5.3 (0.7-5.8) Baso % (Auto) 0.5 (0.1-1.2) % Neut # (Auto) 5.02 (1.56-6.13) K/mm3 Lymph # (Auto) 2.43 (1.18-3.74) K/mm3 Tillman # (Auto) 0.48 H (0.24-0.36) K/mm3 Eos # (Auto) 0.45 H (0.04-0.36) K/mm3 Baso # (Auto) 0.04 (0.01-0.08) K/mm3 Sodium 144 (136-145) mEq/L Potassium 3.9 (3.5-5.1) mEq/L Chloride 107 (98-107) mEq/L Carbon Dioxide 24 (21-32) mEq/L Anion Gap 16.9 H (5-15) BUN 14 (7-18) mg/dL Creatinine 0.7 (0.55-1.02) mg/dL Est Cr Clr Drug Dosing 103.32 mL/min Estimated GFR (MDRD) > 60 (>60) mL/min BUN/Creatinine Ratio 20.0 H (14-18) Glucose 114 H (74-106) mg/dL Calcium 9.4 (8.5-10.1) mg/dL Total Bilirubin 0.3 (0.2-1.0) mg/dL AST 25 (15-37) U/L ALT 25 (14-59) U/L Alkaline Phosphatase 82 (46-116) U/L Total Protein 7.4 (6.4-8.2) g/dl Albumin 3.6 (3.4-5.0) g/dl Globulin 3.8 gm/dL Albumin/Globulin Ratio 1.0 (1-2) Lipase 233 (73-393) U/L Urine Color Yellow (Yellow) Urine Appearance Clear (Clear) Urine pH 6.0 (5.0-8.0) Ur Specific [place] 1.025 (1.005-1.030) Urine Protein Negative (Negative) Urine Glucose (UA) Negative (Negative) Urine Ketones Negative (Negative) Urine Occult Blood 1+ H (Negative) Urine Nitrite Negative (Negative) Urine Bilirubin Negative (Negative) Urine Urobilinogen 0.2 (0.2-1.0) Ur Leukocyte Esterase 1+ H (Negative) Urine RBC 0-5 (0-5) /hpf Urine WBC 20-30 H (0-5) /hpf Urine WBC Clumps Few (NOT SEEN) /hpf Ur Epithelial Cells 0-5 (0-5) /hpf Urine Bacteria Rare (FEW) /hpf Hyaline Casts 0-5 (0-5) /lpf Urine Mucus Moderate H (FEW) /hpf Meds: Medications Generic Name Dose Route Start Last Admin Trade Name Jose Ramonq PRN Reason Stop Dose Admin Sodium Chloride 10 ml 01/24/18 23:42 01/24/18 23:57 Saline Flush FLUSH 10 ml ASDIRECTED PRN Administration Keep Vein Open Discontinued Medications Generic Name Dose Route Start Last Admin Trade Name Darrell PRN Reason Stop Dose Admin Hydromorphone HCl 0.5 mg 01/24/18 23:43 01/24/18 23:57 Dilaudid IVPUSH 01/24/18 23:44 0.5 mg ONETIME ONE Administration Sodium Chloride 1,000 mls @ 1,000 mls/hr 01/24/18 23:42 01/24/18 23:57 Normal Saline IV 01/25/18 00:41 1,000 mls/hr .BOLUS STA Administration Ondansetron HCl 4 mg 01/24/18 23:42 01/24/18 23:57 Zofran IVPUSH 01/24/18 23:43 4 mg ONETIME ONE Administration - Re-Assessments/Exams Free Text/Narrative Re-Assessment/Exam: 01/24/18 23:47 I ordered an IV NS 1L bolus, zofran 4mg IV, dilaudid 0.5mg IV, labs, UA and an US of her gallbladder. 01/25/18 02:46 Her CBC looks good. Her anion gap was elevated at 16.9. Her glucose was elevated at 114. Her lipase was negative. Her UA shows a UTI. I am waiting for the US report. 01/25/18 03:04 The US report is taking to long. There is a huge back up. She has 4 children in the room with her. She feels better. The US looks good to me. I will call her the results in the morning. I will get her on some bactrim for the UTI, prilosec for her abdominal pain and some hydrocodone if she has more pain. 01/25/18 03:11 The US just came back. There is no gallstones. Possible mild gallbladder wall thickening. Further evaluation with HIDA scan as clinically indicated. Possible small gallbladder polyps versus gallbladder adenomyomatosis. I will have her follow up with Dr Ram in the clinic for possible HIDA scan. Departure - Departure Time of Disposition: 03:05 Disposition: Home, Self-Care 01 Condition: Good Clinical Impression: Biliary colic Abdominal pain Qualifiers: Abdominal location: right upper quadrant Qualified Code(s): R10.11 - Right upper quadrant pain UTI (urinary tract infection) Qualifiers: Urinary tract infection type: site unspecified Hematuria presence: without hematuria Qualified Code(s): N39.0 - Urinary tract infection, site not specified - Discharge Information Prescriptions: Hydrocodone/Acetaminophen [Hydrocodon-Acetaminophen 5-325] 1 - 2 each PO Q6HR PRN #15 tablet PRN Reason: Pain Nitrofurantoin Monohyd/M-Cryst [Macrobid 100 mg Capsule] 100 mg PO BID #10 capsule Omeprazole Magnesium [Prilosec Otc] 20 mg PO DAILY #7 tablet. Referrals: PCP,None [Primary Care Provider] - Candy Ram MD [Physician] - Forms: ED Department Discharge Additional Instructions: Take the prilosec daily for 7 days. Take the macrobid 2 times per day for 5 days. Drink plenty of water. Take the hydrocodone as needed for pain. Try to avoid fatty food or fried food. Please return if you are worse. Taking a few of the hydrocodone is okay but if you take 2 pills every 6 hours for many doses you may want to pump and dump. - My Orders Last 24 Hours: My Active Orders 01/24/18 23:42 Peripheral IV Care [RC] . DIRECTED Sodium Chloride 0.9% [Saline Flush] 10 ml FLUSH ASDIRECTED PRN ED Antiemetic Medication Reflex [OM.PC] Stat Peripheral IV Insertion Adult [OM.PC] Stat 01/25/18 00:15 Abdomen Ltd [US] Stat 01/25/18 01:15 UA W/MICROSCOPIC [URIN] Stat - Assessment/Plan Last 24 Hours: My Active Orders 01/24/18 23:42 Peripheral IV Care [RC] . DIRECTED Sodium Chloride 0.9% [Saline Flush] 10 ml FLUSH ASDIRECTED PRN ED Antiemetic Medication Reflex [OM.PC] Stat Peripheral IV Insertion Adult [OM.PC] Stat 01/25/18 00:15 Abdomen Ltd [US] Stat 01/25/18 01:15 UA W/MICROSCOPIC [URIN] Stat
--- NOTE | 2018-01-25 08:45 | US ---
Limited abdominal ultrasound: Multiple real-time images of the upper right abdomen were obtained. Liver shows no focal parenchymal abnormality. No gallstones are seen. Several small intraluminal abnormalities are seen within the gallbladder possibly due to small gallbladder polyps versus adenomyomatosis. Equivocal areas of gallbladder wall thickening are seen. No biliary duct dilatation is noted. Right kidney shows an upper pole cyst measuring 3.1 cm. Pancreas appears within normal limits. Portal vein shows normal hepatopedal flow. Impression: 1. Small intraluminal abnormalities within the gallbladder either due to several small gallbladder polyps or possibly adenomyosis. 2. Questionable areas of gallbladder wall thickening. If patient has specific clinical symptoms to the gallbladder, biliary HIDA scan with ejection fraction could be considered to further evaluate. 3. Incidental upper pole cyst within the right kidney. Diagnostic code #3 Agree with preliminary report issued by [facility] ([facility] preliminary report dictated on 01/25/18, 4:08 AM Central Time)
== END 2018-01-25 03:23 | disposition home or self-care (01) ==
LOC: JD.ED 23:23
DX: K80.50 Calculus of bile duct without cholangitis or cholecystitis without obstruction (principal); N39.0 Urinary tract infection, site not specified
CPT/HCPCS: 36415; 76705; 80053; 81001; 83690; 85025; 96361; 96374; 96375; 99284; J1170; J2405; J7040; J7050

== ENCOUNTER 2018-02-07 09:18 | Emergency (ER) | payer OTHER ==
[2018-02-07 09:37] VITALS: BP 137/91
--- NOTE | 2018-02-07 09:39 | EDM.PDOC ---
ED HPI GENERAL MEDICAL PROBLEM - General Chief Complaint: Abdominal Pain Stated Complaint: ABDOMINAL/BACK/SHOULDER PAIN Time Seen by Provider: 02/07/18 09:33 Source of Information: Reports: Patient History Limitations: Reports: No Limitations - History of Present Illness INITIAL COMMENTS - FREE TEXT/NARRATIVE: 19-year-old female presents to the ED with acute right upper quadrant abdominal pain radiating around the right costal margin into her back infrascapular area. Hurts to take a deep breath. She does feel pain up into her right shoulder as well. She presented to the ED 4 days ago with similar type complaints. It was typical biliary colic or Dr. Echeverria did do an ultrasound her gallbladder which did not reveal any gallstones. Lab test also proved otherwise normal. Urine showed quite a few pus cells likely due to a drop of lochia as she is 2 weeks . Posterior Macrobid 100 mg twice a day. Bowels seem to work better over the weekend she did have a bowel movement this morning. Associated nausea without vomiting. She's not been able to eat since noon yesterday. She is breast -feeding. She is scheduled for HIDA scan in 2 days time. Of note last meal was around noon yesterday. She states she had a cold cut sandwich containing salami and a piece of cheese and a small amount of myonaise. Onset: Sudden Onset Date: 02/06/18 Onset Time: 17:00 Duration: Hour(s): Location: Reports: Abdomen, Radiates to (Radiates around the right costal margin to the infrascapular area right back. Also radiates up into her right shoulder.) Quality: Reports: Ache, Other Severity: Moderate (Constant aching pressure discomfort with occasional colicky component rates pain as 7 and a 10) Improves with: Reports: None Worsens with: Reports: None Context: Denies: Activity, Exercise, Lifting, Sick Contact, Trauma, Other Associated Symptoms: Reports: Loss of Appetite, Nausea/Vomiting, Shortness of Breath. 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: Reports: Other (see below) (Nausea without vomiting none.) Middle Abdominal Pain Score (Numeric/FACES): 10 - Related Data Allergies Allergy/AdvReac Type Severity Reaction Status Date / Time No Known Allergies Allergy Verified 02/07/18 09:37 Home Meds: Home Meds Hydrocodone/Acetaminophen [Hydrocodon-Acetaminophen 5-325] 1 - 2 each PO Q6HR PRN #15 tablet 01/25/18 [Rx] Past Medical History Gastrointestinal History: Reports: 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: Psychiatric History: Reports: Other (See Below) Other Psychiatric History: 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 child Dermatologic History: Reports: Urticaria Other Dermatologic History: with this starting yesterday - Past Surgical History HEENT Surgical History: Reports: Other (See Below) Other HEENT Surgeries/Procedures: wisdom teeth removal Dermatological Surgical History: Reports: None Social & Family History - Family History Family Medical History: Unobtainable - Caffeine Use Caffeine Use: Reports: None - Living Situation & Occupation Living situation: Reports: Occupation: Unemployed ED ROS GENERAL - Review of Systems Review Of Systems: See Below Constitutional: Reports: Malaise, Weakness, Fatigue, Other (Very tired as the pain kept her awake all night long.). Denies: Fever, Chills HEENT: Reports: No Symptoms Respiratory: Denies: Shortness of Breath, Wheezing, Pleuritic Chest Pain, Cough , Sputum, Hemoptysis Cardiovascular: Denies: No Symptoms, Chest Pain, Blood Pressure Problem, Claudication, Dyspnea on Exertion, Edema, Lightheadedness, Orthopnea Endocrine: Reports: Fatigue GI/Abdominal: Reports: Abdominal Pain (See history of present illness), Nausea. Denies: Constipation, Vomiting : Reports: Frequency Musculoskeletal: Reports: No Symptoms Skin: Reports: No Symptoms Neurological: Reports: No Symptoms Psychiatric: Reports: No Symptoms Hematologic/Lymphatic: Reports: No Symptoms Immunologic: Reports: No Symptoms ED EXAM, GI/ABD - Physical Exam Exam: See Below Exam Limited By: No Limitations General Appearance: Alert, WD/WN, Mild Distress, Other (Breast-feeding her baby at the time of exam.) Eyes: Bilateral: Normal Appearance (No jaundice) Respiratory/Chest: No Respiratory Distress, Lungs Clear, Normal Breath Sounds, No Accessory Muscle Use Cardiovascular: Normal Peripheral Pulses, Regular Rate, Rhythm, No Edema, No Gallop, No Murmur GI/Abdominal Exam: Soft, No Organomegaly, No Distention, No Abnormal Bruit, No Mass, Pelvis Stable, Tender (Very tender right upper quadrant of the abdomen with a positive Hung's sign.), Abnormal Bowel Sounds (Slightly hyperactive bowel sounds). No: Guarding, Rigid, Rebound Extremities: Normal Inspection, Normal Range of Motion, Non-Tender, No Pedal Edema Neurological: Alert, Oriented, CN II-XII Intact, Normal Cognition Psychiatric: Normal Affect, Normal Mood Skin Exam: Warm, Dry, Intact, Normal Color, No Rash Course - Vital Signs Last Recorded V/S: Last Vital Signs Temp 37.2 C 02/07/18 09:32 Pulse 95 02/07/18 09:32 Resp 14 02/07/18 09:32 BP 137/91 H 02/07/18 09:32 Pulse Ox 98 02/07/18 09:32 - Orders/Labs/Meds Orders: Active Orders 24 hr Category Date Time Status Dextrose 5%-0.9% NaCl [Dextrose 5%-Normal Saline] 1,000 Med 02/07/18 10:00 Active ml IV ASDIRECTED Dextrose 5%-0.9% NaCl [Dextrose 5%-Normal Saline] 1,000 Med 02/07/18 12:45 Active ml IV ASDIRECTED Ketorolac [Toradol] Med 02/07/18 10:00 Active 30 mg IVPUSH ONETIME Medication Orders Dextrose/Sodium Chloride (Dextrose 5%-Normal Saline) 1,000 mls @ 999 mls/hr IV ASDIRECTED CELESTINE Last Admin: 02/07/18 10:13 Dose: 999 mls/hr Dextrose/Sodium Chloride (Dextrose 5%-Normal Saline) 1,000 mls @ 150 mls/hr IV ASDIRECTED CELESTINE Last Admin: 02/07/18 12:45 Dose: 150 mls/hr Ketorolac Tromethamine (Toradol) 30 mg IVPUSH ONETIME CELESTINE Last Admin: 02/07/18 10:32 Dose: 30 mg Labs: Laboratory Tests 02/07/18 02/07/18 02/07/18 Range/Units 09:45 09:45 09:45 WBC 5.24 (3.98-10.04) K/mm3 RBC 5.28 H (3.98-5.22) M/mm3 Hgb 14.6 (11.2-15.7) gm/L Hct 44.1 (34.1-44.9) % MCV 83.5 (79.4-94.8) fl MCH 27.7 (25.6-32.2) pg MCHC 33.1 (32.2-35.5) g/dl RDW Std Deviation 41.2 (36.4-46.3) fL Plt Count 376 H (182-369) K/mm3 MPV 9.3 L (9.4-12.3) fl Neutrophils % (Manual) 74 H (40-60) % Band Neutrophils % 0 (0-10) % Lymphocytes % (Manual) 25 (20-40) % Atypical Lymphs % 0 % Monocytes % (Manual) 0 L (2-10) % Eosinophils % (Manual) 1 (0.7-5.8) % Basophils % (Manual) 0 L (0.1-1.2) Platelet Estimate Adequate RBC Morph Comment Normal Sodium 140 (136-145) mEq/L Potassium 4.2 (3.5-5.1) mEq/L Chloride 102 (98-107) mEq/L Carbon Dioxide 26 (21-32) mEq/L Anion Gap 16.2 H (5-15) BUN 10 (7-18) mg/dL Creatinine 0.8 (0.55-1.02) mg/dL Est Cr Clr Drug Dosing 82.80 mL/min Estimated GFR (MDRD) > 60 (>60) mL/min BUN/Creatinine Ratio 12.5 L (14-18) Glucose 96 (74-106) mg/dL Calcium 9.2 (8.5-10.1) mg/dL Total Bilirubin 4.1 H (0.2-1.0) mg/dL GGT 303 H (5-55) U/L AST 855 H (15-37) U/L ALT 656 H (14-59) U/L Alkaline Phosphatase 205 H (46-116) U/L C-Reactive Protein 1.5 H* (<1.0) mg/dL Total Protein 8.0 (6.4-8.2) g/dl Albumin 4.0 (3.4-5.0) g/dl Globulin 4.0 gm/dL Albumin/Globulin Ratio 1.0 (1-2) Lipase 225 (73-393) U/L Meds: Medications Generic Name Dose Route Start Last Admin Trade Name Freq PRN Reason Stop Dose Admin Dextrose/Sodium Chloride 1,000 mls @ 999 mls/hr 02/07/18 10:00 02/07/18 10:13 Dextrose 5%-Normal Saline IV 999 mls/hr ASDIRECTED CELESTINE Administration Dextrose/Sodium Chloride 1,000 mls @ 150 mls/hr 02/07/18 12:45 02/07/18 12:45 Dextrose 5%-Normal Saline IV 150 mls/hr ASDIRECTED CELESTINE Administration Ketorolac Tromethamine 30 mg 02/07/18 10:00 02/07/18 10:32 Toradol IVPUSH 30 mg ONETIME CELESTINE Administration Discontinued Medications Generic Name Dose Route Start Last Admin Trade Name Darrell PRN Reason Stop Dose Admin Hydromorphone HCl 0.5 mg 02/07/18 09:55 Dilaudid IVPUSH 02/07/18 09:56 ONETIME ONE Hydromorphone HCl 0.5 mg 02/07/18 10:19 02/07/18 10:32 Dilaudid IVPUSH 02/07/18 10:20 0.5 mg ONETIME ONE Administration Hyoscyamine 0.125 mg 02/07/18 09:55 02/07/18 10:15 Hyomax-Sl SL 02/07/18 09:56 0.125 mg ONETIME ONE Administration Meperidine HCl 50 mg 02/07/18 10:00 Demerol IVPUSH 02/07/18 10:01 ONETIME ONE Ondansetron HCl 4 mg 02/07/18 09:56 02/07/18 10:20 Zofran IVPUSH 02/07/18 09:57 4 mg ONETIME ONE Administration - Radiology Interpretation Free Text/Narrative:: 19-year-old female presents to the ED with acute onset of right upper quadrant abdominal pain rating around the right costal margin to her mid back and infrascapular area. Came on about 1700 hrs. yesterday and kept her awake most of the night due to the intensity of pain. Associated nausea without vomiting. Pain is also referred up and her right shoulder area. She was seen with similar type symptoms January 24. Dr. Argueta worked her up and for biliary colic and she had a negative ultrasound for stones. She is scheduled for a HIDA scan in 2 days time. She has not had any pains since the last visit. He a cold cut sandwich with salami male and cheese yesterday at noon. She is nearly 4 weeks and is actively breast-feeding. Was on a short course of Macrobid for 1 week due to pyuria. This may have been due to a drop of lochia in the urine. Examination today reveals acute tenderness right upper quadrant of the abdomen with a positive Hung's sign suggestive of biliary colic. Plan left send 0.125 mg sublingual. IV will be started D5 normal saline at open. Given Dilaudid 0.5 mg IV for pain relief. Also will receive Zofran 4 mg IV for nausea relief. Also will give her Toradol 30 mg IV. Labs will be done to rule out biliary tree obstruction. Also CRP to rule out acute cholecystitis - Re-Assessments/Exams Free Text/Narrative Re-Assessment/Exam: 02/07/18 11:12 labs are back.Labs reveal a normal white count at 5.24. 74% neutrophils no bands reported. Hemoglobin is 14.6 with hematocrit of 44.1. Platelet count is mildly elevated 376,000. Sodium is 140 with potassium of 4.2. Chloride 102 with a bicarbonate of 26. And a gap is slightly elevated at 16.2. Patient hasn't been able to eat for a and a half. BUN is 10 with a creatinine of 0.8. Glucose is 96. Calcium 9.2. Total bilirubin is elevated at 4.1. GGT is elevated at 303. AST is 855. ALT is 656. Alkaline phosphatase elevated at 205. C -reactive protein is 1.5. Lipase is normal at 225. Therefore patient is showing signs of possible biliary tree obstruction. Will discuss case with instrument mechanic in [place]. 02/07/18 12:[address] Odmo instrument mechanic at [facility] in [place]. He agrees that she has laboratory support of possible early biliary tree obstruction. There is no pancreatitis as of yet. She clinically has an acute cholecystitis with inflammation of the liver transaminases. The arnett is whether or not she is showing signs of biliary tree obstruction toward ERCP. He suggest getting a repeat ultrasound of her liver done to see if there is any dilatation of the intrahepatic ducts that would conclude that she needs ERCP. I will try and have this done shortly. 02/07/18 13:06 ultrasound of the liver and gallbladder was completed. It still reveals a gallbladder polyp. There is some haziness in the fundus of the gallbladder suggesting possible sludge. There are no definitive stones. The gallbladder wall is thickened throughout. There is dilatation of the common bile duct at 7 mm at the most. There appears to be mild diffuse intrahepatic ductal dilatation. Patient will be to transferred to [place] per ambulance to [facility] in [place]. Dr. Grayson --hospitalist has accepted care. Departure - Departure Time of Disposition: 13:07 Disposition: Home, Self-Care 01 Condition: Fair Clinical Impression: Acute cholecystitis, Obstruction of biliary tree - Discharge Information Referrals: Candy Ram MD [Primary Care Provider] - Forms: ED Department Discharge Additional Instructions: Patient transferred to [facility] due to need for possible ERCP due to at least partial obstruction of the common bile duct. She has an acute associated cholecystitis. She'll be transported by ground embolus to that facility with plans to be a direct admission to the hospitalist service. Dr Robertson has accepted care. - My Orders Last 24 Hours: My Active Orders 02/07/18 10:00 Dextrose 5%-0.9% NaCl [Dextrose 5%-Normal Saline] 1,000 ml IV ASDIRECTED Ketorolac [Toradol] 30 mg IVPUSH ONETIME 02/07/18 12:45 Dextrose 5%-0.9% NaCl [Dextrose 5%-Normal Saline] 1,000 ml IV ASDIRECTED - Assessment/Plan Last 24 Hours: My Active Orders 02/07/18 10:00 Dextrose 5%-0.9% NaCl [Dextrose 5%-Normal Saline] 1,000 ml IV ASDIRECTED Ketorolac [Toradol] 30 mg IVPUSH ONETIME 02/07/18 12:45 Dextrose 5%-0.9% NaCl [Dextrose 5%-Normal Saline] 1,000 ml IV ASDIRECTED
[2018-02-07] MEDS ORDERED: Hyoscyamine 0.125 MG Tab.SL SL ONE (09:55)
[2018-02-07] MEDS ORDERED: HYDROmorphone 0.5 MG/0.5 ML SYRINGE IVPUSH ONE ×2 (09:55→10:19)
[2018-02-07] MEDS ORDERED: Ondansetron 4 MG/2 ML SDV IVPUSH ONE (09:56)
[2018-02-07] MEDS ORDERED: Dextrose 5%-0.9% NaCl 1,000 ML IV SCH ×2 (10:00→12:45)
[2018-02-07] MEDS ORDERED: Ketorolac 30 MG/ML SDV IVPUSH SCH (10:00)
[2018-02-07] MEDS ORDERED: Meperidine PF 50 MG/ML Syringe IVPUSH ONE (10:00)
--- NOTE | 2018-02-07 12:48 | US ---
Limited abdominal ultrasound: Multiple real-time images of the upper right abdomen were obtained. Comparison: Previous right upper quadrant abdominal ultrasound of 01/25/18. Findings: Liver shows no focal parenchymal abnormality. Several small intraluminal abnormalities are seen within the gallbladder which most likely represents minimal polyps. Gallbladder wall is thickened. No shadowing gallstones are seen. Common bile duct measures at the upper limits of normal at 7 mm. Stable cyst is noted within the upper right kidney measuring 3.5 cm. Pancreas appears within normal limits. Impression: 1. Gallbladder wall thickening with several small intraluminal polyps. Common bile duct at the upper limits of normal at 7 mm. Findings raise the possibility of chronic cholecystitis. Biliary HIDA scan with ejection fraction could be obtained to confirm if clinically needed. 2. Other incidental findings. Diagnostic code #3
== END 2018-02-07 13:40 | disposition home or self-care (01) ==
LOC: JD.ED 09:18
DX: K81.0 Acute cholecystitis (principal); K83.1 Obstruction of bile duct; K21.9 Gastro-esophageal reflux disease without esophagitis
CPT/HCPCS: 36415; 76705; 80053; 82977; 83690; 85007; 85027; 86140; 96361; 96374; 96375; 99285; A9270; J1170; J1885; J2405; J7042